=== PATIENT | female | born 1995 | race Caucasian/White ===

== ENCOUNTER 2017-12-02 08:00 | Emergency (ER) | payer SELFPAY ==
[2017-12-02] MEDS ORDERED: diPHENhydraMINE IV* 50 MG/ML 1 ml VIAL (BENADRYL) IV ONE (08:22)
[2017-12-02] MEDS ORDERED: NS 0.9% 1000 ML* 1,000 ML IV ONE (08:22)
[2017-12-02] MEDS ORDERED: Famotidine IV * 20 MG in NS 0.9% 100 ML* 100 ML IVPB ONE (08:22)
[2017-12-02] MEDS ORDERED: methylPREDNISolone 125 MG* 2 ML VIAL IV ONE (08:22)
[2017-12-02 11:12] VITALS: BP 116/80
--- NOTE | 2017-12-02 13:57 | ED ---
Jagruti Peguero Julia, scribed for Dread Hawk MD on 12/02/17 at 0829 . Allergic Reaction/Systemic - HPI Summary HPI Summary: This patient is a 22 year old F presenting to [facility] with a chief complaint of an intermittent allergic reaction with diffuse pruritic hives for the past few days worsening yesterday with swelling left side of her tongue. Symptoms were alleviated briefly by Benadryl. She states symptoms have returned today and she currently report throat tightening. Patient reports pruritic hives, describes throat tightening. Patient denies fever chills n/v/d, or recent illness. She is not aware what is causing this reaction. She states her only known allergies are Sulfa and bunnies. - History of Current Complaint Chief Complaint: EDAllergicReaction Time Seen by Provider: 12/02/17 08:13 Hx Obtained From: Patient Onset/Duration: Started days ago, Worse Since - this morning Timing: Constant Pain Intensity: 0 Location: Diffuse - rash Character: Pruritus, Hives Associated Signs And Symptoms: Positive: Rash, Throat Tightening - Related Hx Possible Reaction To: Unknown - Allergies/Home Medications Allergies/Adverse Reactions: Allergies Allergy/AdvReac Type Severity Reaction Status Date / Time Sulfa (Sulfonamide Allergy Rash Verified 12/02/17 08:06 Antibiotics) PMH/Surg Hx/FS Hx/Imm Hx Sensory History: Reports: Hx Contacts or Glasses EENT History: Denies: Hx Deafness Infectious Disease History: No Infectious Disease History: Denies: Traveled Outside the [place] in Last 30 Days - Family History Known Family History: Positive: Cardiac Disease, Diabetes, Other - autoimmune disease - Social History Alcohol Use: Occasionally Hx Substance Use: No Hx Tobacco Use: No Smoking Status (MU): Never Smoked Tobacco Review of Systems Negative: Fever, Chills Negative: Vomiting, Diarrhea, Nausea All Other Systems Reviewed And Are Negative: Yes Physical Exam - Summary Physical Exam Summary: GENERAL: Patient is a well developed and nourished F who is lying comfortable in the stretcher. Patient is not in any acute respiratory distress. HEAD AND FACE: Normocephalic EYES: PERRLA, EOMI x 2. EARS: Hearing grossly intact. MOUTH: Oropharynx within normal limits. Uvula is midline without swelling NECK: Supple, trachea is midline, no adenopathy, no JVD, no carotid bruit. CHEST: Symmetric, no tenderness at palpation LUNGS: Clear to auscultation bilaterally. No wheezing or crackles. CVS: Regular rate and rhythm, S1 and S2 present, no murmurs or gallops appreciated. ABDOMEN: Soft, non-tender. Bowel sounds are normal. No abdominal abnormal pulsations. EXTREMITIES: Full ROM in all major joints, no edema, no cyanosis or clubbing. NEURO: Alert and oriented x 3. No acute neurological deficits. Speech is normal and follows commands. SKIN: Dry and warm, diffuse hives over extremies Triage Information Reviewed: Yes Vital Signs On Initial Exam: Initial Vitals Temp Pulse Resp BP Pulse Ox 98.7 F 107 14 129/81 97 12/02/17 08:07 12/02/17 08:07 12/02/17 08:07 12/02/17 08:07 12/02/17 08:07 Vital Signs Reviewed: Yes Diagnostics - Vital Signs Vital Signs Temp Pulse Resp BP Pulse Ox 12/02/17 08:07 98.7 F 107 14 129/81 97 - Laboratory Lab Statement: Any lab studies that have been ordered have been reviewed, and results considered in the medical decision making process. Re-Evaluation - Re-Evaluation 1 Re-Evaluation Time: 10:00 Change: Improved - Pt is feeling better; hives are improved. Allergic Reaction Course/Dx - Course Course Of Treatment: 22 y/o F presents to ED c/o throat tighening and diffuse hives. Pt is unsure of the casue to her allergic reaction. Pt is given 25mg IV Benadryl, 125mg Solu-Medrol, and 1L of IV fluids. Pt is feeling better in ED and her hives have improved. Pt is discharged with a prescription for Benadryl, Epi-Pens, Pepcid, and prednisone. Pt is instructed to follow up with an jewelry inspector and is given instructions on how to use an Epi-Pen correctly. - Diagnoses Provider Diagnoses: Allergic reaction Discharge - Sign-Out/Discharge Documenting (check all that apply): Discharge/Admit/Transfer - Discharge Plan Condition: Stable Disposition: HOME Prescriptions: diphenhydrAMINE HCl [Benadryl Allergy 25 MG CAP] 25 mg PO Q6HR #30 cap EPINEPHrine [Epipen 2-Yfn] 0.3 mg IM ONCE #1 inj Famotidine TAB* [Pepcid 20 MG TAB*] 20 mg PO BID #30 tab predniSONE TAB* [Deltasone TAB*] 40 mg PO DAILY #4 tab Patient Education Materials: Epinephrine (By injection), Urticaria (ED), Anaphylaxis (ED) Referrals: [facility] [Outside] - Billing Disposition and Condition Condition: STABLE Disposition: HOME The documentation as recorded by the Jagruti lemos Julia accurately reflects the service I personally performed and the decisions made by , Dread Hawk MD.
== END 2017-12-02 11:12 | disposition home or self-care (01) ==
LOC: ED 08:00
DX: L50.0 Allergic urticaria (principal); Z88.2 Allergy status to sulfonamides
CPT/HCPCS: 96360; 96374; 96375; 99283; J1200; J2930